=== PATIENT | male | born 1945 | race Caucasian/White ===

== ENCOUNTER 2017-01-15 | Inpatient (IN) | payer OTHER, MEDICARE ==
[~2017-01-15] MED LIST: ASPIR 8181 M1 PO; BENAZEPRIL-HCT; DILTIAZEM HCL; FISH OIL 11000 MG/CA PO; IBUPROFEN200 MG; IMDUR PO; LIPITOR40 M1 PO; LISINOPRIL-HCT1 EAC1 PO; MELATONIN3 M4 PO; METAMUCIL; METOPROLOL TART25 M1 PO; NORVASC5 M2 PO; POTASSIUM CHLO20 ME3 PO; PRED FORTE1 ML RIGHT EYE; PRED FORTE5 ML; PREVACID15 M2 PO; PRISTIQ ER100 MG PO; PROZAC20 MG; TIAZAC360 M1 PO; TRAZODONE HCL100 M1 PO; TRAZODONE HCL100 MG; WELLBUTRIN XL150 M1 PO
[2017-01-20] MEDS ORDERED: AMIODARONE HCL200 M1 PO (13:50)
[2017-01-20] MEDS ORDERED: HYDROCODON-ACE1 EA16 PO (13:53)
[2017-01-20] MEDS ORDERED: DIFLUCAN100 M1 PO (15:41)
[2017-05-19] MEDS ORDERED: FLONASE ALLERG9.9 ML (10:54)
[2017-05-19] MEDS ORDERED: PROAIR HFA8.5 GM INH (11:00)
[2017-05-19] MEDS ORDERED: BEVESPI AEROS10.7 GM INH (11:00)
[2017-05-19] MEDS ORDERED: NEURONTIN300 M1 PO (15:33)
[2017-05-22] MEDS ORDERED: BEVESPI AEROS10.7 GM INH ×2 (10:50→10:51)
[2017-06-18] MEDS ORDERED: BEVESPI AEROS10.7 GM INH ×2 (17:50→17:51)
[2017-06-18] MEDS ORDERED: XARELTO20 M1 PO (17:52)
== END 2017-01-20 15:48 | DRG 163 ==
DX: J90 Pleural effusion, not elsewhere classified (principal); J96.01 Acute respiratory failure with hypoxia; I48.92 Unspecified atrial flutter; J98.19 Other pulmonary collapse; Z95.1 Presence of aortocoronary bypass graft; I25.10 Atherosclerotic heart disease of native coronary artery without angina pectoris; I10 Essential (primary) hypertension; E78.5 Hyperlipidemia, unspecified; N52.9 Male erectile dysfunction, unspecified; K21.9 Gastro-esophageal reflux disease without esophagitis; Z96.641 Presence of right artificial hip joint; Z96.651 Presence of right artificial knee joint; Z88.8 Allergy status to other drugs, medicaments and biological substances; Z79.82 Long term (current) use of aspirin; R91.1 Solitary pulmonary nodule; Z87.891 Personal history of nicotine dependence; F32.9 Major depressive disorder, single episode, unspecified; F41.9 Anxiety disorder, unspecified; I48.0 Paroxysmal atrial fibrillation